=== PATIENT | male | born 1970 | race Caucasian/White ===

== ENCOUNTER 2020-08-04 17:24 | Emergency (ER) | payer OTHER ==
[~2020-08-04] VITALS: Ht 188 cm; Wt 101.2 kg
[2020-08-04 18:09] VITALS: Ht 188 cm; Wt 101.2 kg
[2020-08-04 20:20] VITALS: BP 137/124
== END 2020-08-04 20:20 | disposition home or self-care (01) ==
LOC: ED 17:24
DX: K04.7 Periapical abscess without sinus (principal); Z98.890 Other specified postprocedural states
CPT/HCPCS: J0561; J1885